=== PATIENT | male | born 2000 | race Two or more races ===

== ENCOUNTER → 2024-11-01 | Outpatient (CLI) | payer SELFPAY ==
[2024-11-01 17:50] LABS: Free T4 (Free Thyroxine) 1.26 ng/dL (0.89-1.76); Thyroid Stimulating Hormone 2.67 uIU/mL (0.55-4.78)
== END | disposition home or self-care (01) ==
PROVIDERS: Referring Provider Dermatology; Visit Provider Dermatology
DX: L65.9 Nonscarring hair loss, unspecified (principal)
CPT/HCPCS: 36415; 84439; 84443